=== PATIENT | female | born 1990 | race African-American/Black ===

== ENCOUNTER 2020-07-24 15:45 | Emergency (ER) | payer OTHER ==
[~2020-07-24] VITALS: Ht 167.6 cm; Wt 61.2 kg
[2020-07-24] MEDS ORDERED: BENADRYL25 MG PO ×2 (16:14→17:51)
== END 2020-07-24 18:32 | disposition home or self-care (01) ==
LOC: ER 15:45
DX: S91.351A Open bite, right foot, initial encounter (principal); W54.0XXA Bitten by dog, initial encounter; Y93.89 Activity, other specified; Y92.89 Other specified places as the place of occurrence of the external cause; Y99.8 Other external cause status